=== PATIENT | male | born 1990 | race Caucasian/White ===

== ENCOUNTER 2022-10-24 02:07 | Emergency (ER) | payer SELFPAY ==
[~2022-10-24] VITALS: Ht 180.3 cm; Wt 75.0 kg
[2022-10-24] MEDS ORDERED: HYDROcodone/acetaminophen 10/325mg tab PO ONE (04:20)
[2022-10-24] MEDS ORDERED: HYDR-3973 PO ×3 (04:44→13:19)
[2022-10-24 04:57] VITALS: BP 124/70
== END 2022-10-24 04:58 | disposition home or self-care (01) ==
LOC: ER 02:07
DX: S46.911A Strain of unspecified muscle, fascia and tendon at shoulder and upper arm level, right arm, initial encounter (principal); S60.212A Contusion of left wrist, initial encounter; S50.311A Abrasion of right elbow, initial encounter; Z79.899 Other long term (current) drug therapy; W18.39XA Other fall on same level, initial encounter; Y93.89 Activity, other specified; Y92.89 Other specified places as the place of occurrence of the external cause; Y99.8 Other external cause status
CPT/HCPCS: 71045; 73030; 73080; 73110; 99284